=== PATIENT | female | born 1985 | race Caucasian/White ===

== ENCOUNTER → 2018-06-01 12:58 | Outpatient (CLI) | payer OTHER, MEDICAID, SELFPAY ==
--- NOTE | 2018-06-01 | DI.RAD.S_ITS ---
PROCEDURE: XR LUMBAR SPINE 2-3V INDICATIONS: BACK PAIN TECHNIQUE: 3 views of the lumbar spine were acquired. COMPARISON: None. FINDINGS: Bones: 5 [id number] vertebrae are present. There is mildly dextroscoliotic bony alignment centered at L2 alignment. No vertebral body compression fractures. No suspicious bony lesions. Soft tissues: Overlying bowel gas pattern is normal. No suspicious soft tissue calcifications. IMPRESSION: Mild convex-right scoliosis centered at L2. No acute trauma found. Mild chronic appearing degenerative disc disease and facet osteoarthritis at L5-S1. Dictated by: Baudilio Sparks M.D. on 06/01/2018 at 13:43 Approved by: Baudilio Sparks M.D. on 06/01/2018 at 13:52
== END ==
PROVIDERS: Family Provider Family Medicine; PCP Family Medicine; Visit Provider Family Medicine
DX: M51.37 Other intervertebral disc degeneration, lumbosacral region (principal); M47.817 Spondylosis without myelopathy or radiculopathy, lumbosacral region; M54.9 Dorsalgia, unspecified; M41.86 Other forms of scoliosis, lumbar region
CPT/HCPCS: 72100

== ENCOUNTER → 2018-11-04 12:13 | Outpatient (CLI) | payer OTHER, MEDICAID, SELFPAY ==
--- NOTE | 2018-11-04 12:18 | DI.MRI.S_ITS ---
PROCEDURE: MR LUMBAR SPINE WO CON INDICATIONS: Lumbosacral spondylosis with L5 radiculopathy TECHNIQUE: Noncontrast sagittal T1 spin echo and T2 fast echo, sagittal STIR, axial T1 and T2 fast spin echo through the lumbar spine. In cases with scoliosis, additional coronal T2 fast spin echo may be performed. COMPARISON: None. FINDINGS: Image quality: Excellent. Alignment and Curvature: There is normal bony alignment. Bone Marrow: Marrow is of normal overall signal. No acute vertebral body compression fractures. Spinal Cord: Conus medullaris terminates at the L1 level. Visualized cord demonstrates normal signal and size. Paraspinous Soft Tissues: No paravertebral masses. L1-L2: Normal appearance. L2-L3: Normal appearance. L3-L4: Mild broad-based disc bulge and bilateral facet arthrosis is seen. There is very mild central canal stenosis, no significant neuroforaminal narrowing.. L4-L5: Broad-based disc bulge and bilateral facet arthrosis is seen with hypertrophy of ligamentum flavum. There is mild central canal stenosis and mild to moderate left-sided neuroforaminal narrowing. Mild right-sided neuroforaminal narrowing is also seen. L5-S1: Broad-based disc bulge and bilateral facet arthrosis is seen with mild central canal stenosis and bilateral neuroforaminal narrowing. IMPRESSION: 1. Broad-based disc bulge and bilateral facet arthrosis at L3-4 through L5-S1 levels causing mild to moderate central canal stenosis and bilateral neuroforaminal narrowing most prominent at L4-5 level as above. 2. No marrow edema. No compression fracture or spondylolisthesis. Dictated by: Carlo Acosta M.D. on 11/04/2018 at 15:51 Approved by: Carlo Acosta M.D. on 11/04/2018 at 16:04
== END ==
PROVIDERS: PCP Family Medicine; Visit Provider Physical Medicine & Rehabilitation
DX: M47.27 Other spondylosis with radiculopathy, lumbosacral region (principal); M47.26 Other spondylosis with radiculopathy, lumbar region; M51.16 Intervertebral disc disorders with radiculopathy, lumbar region; M51.17 Intervertebral disc disorders with radiculopathy, lumbosacral region; M48.061 Spinal stenosis, lumbar region without neurogenic claudication; M48.07 Spinal stenosis, lumbosacral region; G89.29 Other chronic pain
CPT/HCPCS: 72148